=== PATIENT | female | born 1945 | race Two or more races ===

== ENCOUNTER 2023-06-02 15:31 | Inpatient (IN) | payer MEDICARE, OTHER ==
[~2023-06-02] VITALS: Ht 160 cm; Wt 50.4 kg
[2023-06-02] MEDS ORDERED: MORPHINE SULFATE 4 MG/ML SYR/VIAL IV ONE (19:00)
[2023-06-02 19:30] LABS: Basophils # (auto) 0.1 10 ^3/uL (0-0.2); Basophils % (auto) 1.1 % (0.0-2.0); Eosinophils # (auto) 0.1 10 ^3/uL (0-0.8); Hematocrit 36.8 % (36.0-46.0); Lymphocytes # (auto) 1.6 10 ^3/uL (0.4-5.4); Lymphocytes % (auto) 16.5 % (10.0-50.0); Mean Corpuscular Hemoglobin 28.2 pg (28.0-32.0); Mean Corpuscular Hgb Conc. 32.6 g/dL (32.0-36.0); Mean Corpuscular Volume 86.6 fL (80.0-100.0); Monocytes # (auto) 0.9 10 ^3/uL (0-1.3); Monocytes % (auto) 8.8 % (0.0-12.0); Neutrophils # (auto) 7.1 10 ^3/uL (1.6-8.6); Neutrophils % (auto) 72.6 % (37.0-80.0); Nucleated Red Blood Cells % 0.1 %; Red Blood Cells 4.25 10^6/uL (4.0-5.20); Red Cell Distribution Width 18.1 % (11.8-14.3); White Blood Cell 9.7 10^3/uL (4.4-10.8)
[2023-06-02 19:46] LABS: Alanine Aminotransferase 15 U/L (7-40); Albumin 3.5 g/dL (3.2-4.8); Alkaline Phosphatase 106 U/L (46-116); Anion Gap 8 (5-15); Aspartate Aminotransferase 16 U/L (13-40); BUN/Creatinine Ratio 19.2 (10.0-20.0); Bilirubin, Total 0.6 mg/dL (0.2-1.0); Blood Urea Nitrogen 20 mg/dL (9-23); Calcium 9.6 mg/dL (8.7-10.4); Carbon Dioxide 26 mmol/L (20-30); Chloride 108 mmol/L (98-107); Glucose 103 mg/dL (74-106); Lipase 45 U/L (12-53); Magnesium 2.2 mg/dL (1.6-2.6); Potassium 4.9 mmol/L (3.5-5.1); Sodium 142 mmol/L (136-145); Total Protein 5.9 g/dL (5.7-8.2)
[2023-06-02] MEDS: SODIUM CHLORIDE 0.9% 1,000 ML IV ONE (20:19)
[2023-06-02] MEDS: ONDANSETRON HCL 4 MG/2 ML VIAL IV ONE (20:24)
[2023-06-02] MEDS: LORazepam 2MG/ML-1ML VIAL IM ONE (20:31)
[2023-06-02 21:32] LABS: Urine Bacteria MOD /hpf (None Seen); Urine Blood Negative /uL (Negative); Urine Clarity HAZY (Clear); Urine Color Yellow (Yellow); Urine Mucus FEW (None Seen); Urine Protein, UAD TRACE (Negative); Urine Specific Gravity 1.024 (1.001-1.035); Urine Urobilinogen Normal (Negative); Urine WBC 96 /hpf (0 - 5); Urine pH 6.5 (5.0-8.0)
[2023-06-02] MEDS ORDERED: HYDROcodone-ACET 5/325MG TAB PO PRN (22:00)
[2023-06-02] MEDS ORDERED: DOCUSATE SOD 100 MG CAP PO PRN (22:00)
[2023-06-02] MEDS ORDERED: ACETAMINOPHEN 325 MG TAB PO PRN (22:00)
[2023-06-02] MEDS ORDERED: MORPHINE SULFATE INJ 2 MG/ml SYRG IV PRN (22:15)
[2023-06-02] MEDS ORDERED: NITROGLYCERIN 0.4 MG SL TAB SL PRN (22:15)
[2023-06-02] MEDS: PIPERACILLIN-TAZOB 3.375GM 100 ML IV ONE (22:31)
[2023-06-02] MEDS: D5W/SOD CHL 0.45% 1,000 ML IV SCH (23:48)
[2023-06-03] MEDS: MORPHINE SULFATE INJ 2 MG/ml SYRG IV PRN (01:30)
[2023-06-03] MEDS: ONDANSETRON HCL 4 MG/2 ML VIAL IV PRN (01:39)
[2023-06-03 01:43] VITALS: PULSE 73; RESP 16; O2SAT 99
[2023-06-03] MEDS: FAMOTIDINE (10MG/ML) 2ML VL IV SCH (03:22)
[2023-06-03 07:20] LABS: Basophils # (auto) 0 10 ^3/uL (0-0.2); Basophils % (auto) 0.3 % (0.0-2.0); Eosinophils # (auto) 0.1 10 ^3/uL (0-0.8); Eosinophils % (auto) 0.9 % (0.0-7.0); Hematocrit 36.6 % (36.0-46.0); Hemoglobin 11.7 g/dL (12.2-16.2); Lymphocytes # (auto) 1.2 10 ^3/uL (0.4-5.4); Lymphocytes % (auto) 12.3 % (10.0-50.0); Mean Corpuscular Hemoglobin 27.8 pg (28.0-32.0); Mean Corpuscular Hgb Conc. 32.1 g/dL (32.0-36.0); Mean Corpuscular Volume 86.8 fL (80.0-100.0); Monocytes # (auto) 0.9 10 ^3/uL (0-1.3); Neutrophils # (auto) 7.2 10 ^3/uL (1.6-8.6); Neutrophils % (auto) 76.5 % (37.0-80.0); Red Blood Cells 4.21 10^6/uL (4.0-5.20); Red Cell Distribution Width 17.8 % (11.8-14.3); White Blood Cell 9.4 10^3/uL (4.4-10.8)
[2023-06-03 07:56] LABS: Alanine Aminotransferase 18 U/L (7-40); Alkaline Phosphatase 144 U/L (46-116); Anion Gap 5 (5-15); BUN/Creatinine Ratio 14.4 (10.0-20.0); Blood Urea Nitrogen 14 mg/dL (9-23); Calcium 9.2 mg/dL (8.7-10.4); Carbon Dioxide 26 mmol/L (20-30); Chloride 109 mmol/L (98-107); Glucose 103 mg/dL (74-106); Potassium 4.6 mmol/L (3.5-5.1); Sodium 140 mmol/L (136-145)
[2023-06-03 07:57] LABS: Albumin 3.5 g/dL (3.2-4.8); Aspartate Aminotransferase 37 U/L (13-40); Bilirubin, Total 0.7 mg/dL (0.2-1.0); Total Protein 6.1 g/dL (5.7-8.2)
[2023-06-03 08:26] VITALS: PULSE 82; RESP 13; O2SAT 99
[2023-06-03 09:13] LABS: INR 1.07 (0.9-1.15); Partial Thromboplastin Time 27.9 SEC (24.5-34.5); Prothrombin Time 11.2 sec (9.3-11.8)
[2023-06-03] MEDS: PIPERACILLIN-TAZOB 3.375GM 100 ML IV SCH (10:20)
[2023-06-04 05:31] LABS: Basophils # (auto) 0 10 ^3/uL (0-0.2); Basophils % (auto) 0.5 % (0.0-2.0); Eosinophils # (auto) 0.2 10 ^3/uL (0-0.8); Eosinophils % (auto) 4.3 % (0.0-7.0); Lymphocytes # (auto) 1.3 10 ^3/uL (0.4-5.4); Lymphocytes % (auto) 24.1 % (10.0-50.0); Mean Corpuscular Hemoglobin 28.2 pg (28.0-32.0); Mean Corpuscular Hgb Conc. 32.4 g/dL (32.0-36.0); Mean Corpuscular Volume 86.9 fL (80.0-100.0); Monocytes # (auto) 0.5 10 ^3/uL (0-1.3); Monocytes % (auto) 9.8 % (0.0-12.0); Neutrophils # (auto) 3.4 10 ^3/uL (1.6-8.6); Neutrophils % (auto) 61.3 % (37.0-80.0); Nucleated Red Blood Cells % 0.1 %; Red Blood Cells 3.91 10^6/uL (4.0-5.20); Red Cell Distribution Width 17.5 % (11.8-14.3); White Blood Cell 5.5 10^3/uL (4.4-10.8)
[2023-06-04 05:48] LABS: Alanine Aminotransferase 12 U/L (7-40); Albumin 3.1 g/dL (3.2-4.8); Alkaline Phosphatase 112 U/L (46-116); Anion Gap 6 (5-15); Aspartate Aminotransferase 23 U/L (13-40); BUN/Creatinine Ratio 10.4 (10.0-20.0); Bilirubin, Total 0.5 mg/dL (0.2-1.0); Blood Urea Nitrogen 11 mg/dL (9-23); Calcium 9.2 mg/dL (8.5-10.1); Carbon Dioxide 26 mmol/L (20-30); Chloride 110 mmol/L (98-107); Glucose 89 mg/dL (74-106); Potassium 3.8 mmol/L (3.5-5.1); Sodium 142 mmol/L (136-145); Total Protein 5.3 g/dL (5.7-8.2)
[2023-06-04] MEDS: GASTROGRAFIN 120 ML SOL ONE (15:01)
[2023-06-04 19:25] VITALS: PULSE 56; RESP 15; O2SAT 100
[2023-06-04 21:03] VITALS: BP 119/70; PULSE 75; RESP 16; TEMP 98.3; O2SAT 98
[2023-06-04 22:00] VITALS: BP 113/62; PULSE 70; RESP 19; TEMP 97.6; O2SAT 98
[2023-06-05] VITALS (7 sets, daily range): BP systolic 102–130; BP diastolic 55–66; PULSE 61–73; RESP 17–20; TEMP 97.6–98.3; O2SAT 93–99
[2023-06-05] MEDS ORDERED: MET25T PO (01:19)
[2023-06-05] MEDS ORDERED: FAMO-12 PO (01:19)
[2023-06-05] MEDS ORDERED: SERT-206 PO (01:19)
[2023-06-05] MEDS: cefTRIAXone 1GM/50ML D5W 50 ML IV ONE (21:44)
[2023-06-06] VITALS (9 sets, daily range): BP systolic 102–136; BP diastolic 54–99; PULSE 60–79; RESP 17–20; TEMP 97.2–98.3; O2SAT 90–100
[2023-06-06] MEDS ORDERED: SODIUM CHLORIDE LOCK 10 ML ONE (08:50)
[2023-06-06] MEDS: cefTRIAXone 1GM/50ML D5W 50 ML IV SCH (09:48)
[2023-06-06] MEDS: LIDOCAINE VISCOUS 2% 15ML UD ONE (11:04)
[2023-06-06] MEDS: MIDAZOLAM HCL 5 MG/ML-1ML VIAL ONE (11:09)
[2023-06-06] MEDS: diphenhdrAMINE HCL 50 MG/1 ML VL ONE (11:09)
[2023-06-06] MEDS: fentaNYL CITRATE 100 MCG/2 ML VL ONE (11:09)
[2023-06-06] MEDS: SUCRALFATE 1 GM/10 ML ORAL SUSP PO SCH (12:50)
[2023-06-06] MEDS: CIPROFLOXACIN HCL 500 MG TAB PO SCH (22:07)
[2023-06-06] MEDS: PANTOPRAZOLE 40 MG TAB PO SCH (22:07)
[2023-06-07 07:08] LABS: Basophils # (auto) 0 10 ^3/uL (0-0.2); Basophils % (auto) 0.5 % (0.0-2.0); Eosinophils # (auto) 0.3 10 ^3/uL (0-0.8); Hemoglobin 11.4 g/dL (12.2-16.2); Monocytes # (auto) 0.5 10 ^3/uL (0-1.3)
[2023-06-07 07:10] LABS: Alanine Aminotransferase 14 U/L (7-40); Albumin 3.4 g/dL (3.2-4.8); Alkaline Phosphatase 100 U/L (46-116); Anion Gap 6 (5-15); Aspartate Aminotransferase 21 U/L (13-40); Bilirubin, Total 0.2 mg/dL (0.2-1.0); Calcium 9.1 mg/dL (8.5-10.1); Carbon Dioxide 26 mmol/L (20-30); Chloride 111 mmol/L (98-107); Eosinophils % (auto) 5.4 % (0.0-7.0); Glucose 81 mg/dL (74-106); Hematocrit 36.8 % (36.0-46.0); Lymphocytes % (auto) 17.3 % (10.0-50.0); Mean Corpuscular Hemoglobin 27.9 pg (28.0-32.0); Mean Corpuscular Hgb Conc. 30.9 g/dL (32.0-36.0); Mean Corpuscular Volume 90.1 fL (80.0-100.0); Monocytes % (auto) 9.2 % (0.0-12.0); Neutrophils # (auto) 3.8 10 ^3/uL (1.6-8.6); Neutrophils % (auto) 67.6 % (37.0-80.0); Nucleated Red Blood Cells % 0.1 %; Red Blood Cells 4.09 10^6/uL (4.0-5.20); Red Cell Distribution Width 18.3 % (11.8-14.3); Sodium 143 mmol/L (136-145); White Blood Cell 5.6 10^3/uL (4.4-10.8)
[2023-06-07 07:11] LABS: Total Protein 5.6 g/dL (5.7-8.2)
[2023-06-07 07:14] LABS: BUN/Creatinine Ratio 6.5 (10.0-20.0); Blood Urea Nitrogen < 5 mg/dL (9-23)
[2023-06-07 08:00] VITALS: BP 102/63; PULSE 70; RESP 18; TEMP 98.2
[2023-06-07 08:30] VITALS: BP 125/67; PULSE 59; RESP 17; TEMP 97.9; O2SAT 99
[2023-06-07 13:29] VITALS: BP 130/66; PULSE 70; RESP 19; TEMP 97.6; O2SAT 99
[2023-06-07 17:02] VITALS: BP 126/70; PULSE 69; RESP 17; TEMP 97.6; O2SAT 98
[2023-06-07 20:00] VITALS: BP 98/66; PULSE 87; RESP 18; TEMP 98.2; O2SAT 95
[2023-06-07 21:30] VITALS: BP 98/66; PULSE 87; RESP 18; TEMP 98.2; O2SAT 95
[2023-06-08 05:00] VITALS: BP 124/58; PULSE 67; RESP 18; TEMP 97.7; O2SAT 97
[2023-06-08 08:00] VITALS: PULSE 85; RESP 16; O2SAT 95
[2023-06-08 09:00] VITALS: BP 145/73; PULSE 72; RESP 19; TEMP 97.5; O2SAT 100
[2023-06-08] MEDS ORDERED: SUCR1TAB22 OR (10:00)
[2023-06-08] MEDS ORDERED: PANT40T PO (10:00)
[2023-06-08] MEDS ORDERED: CIP500T PO (10:00)
[2023-06-08 12:12] VITALS: TEMP 36.5
== END 2023-06-08 13:40 | disposition home or self-care (01) | DRG 384 ==
LOC: EDBD 15:31 → ER 15:31 → OVERFLOW 06-03 10:57 → CENTRAL 06-04 19:40 → TELE-CENTR 06-04 23:50 → CENTRAL 06-07 18:22
PROVIDERS: ADMIT Nurse Practitioner Family; ATTEND Nurse Practitioner Acute Care
PROC: 0DB68ZX Excision of Stomach, Via Natural or Artificial Opening Endoscopic, Diagnostic (ICD-10-PCS; 2023-06-06)
PROC: 0DBA8ZX Excision of Jejunum, Via Natural or Artificial Opening Endoscopic, Diagnostic (ICD-10-PCS; 2023-06-06)
PROC: 0DB98ZX Excision of Duodenum, Via Natural or Artificial Opening Endoscopic, Diagnostic (ICD-10-PCS; principal; 2023-06-06 11:01)
DX: K25.9 Gastric ulcer, unspecified as acute or chronic, without hemorrhage or perforation (principal); N30.00 Acute cystitis without hematuria; F03.90 Unspecified dementia, unspecified severity, without behavioral disturbance, psychotic disturbance, mood disturbance, and anxiety; D64.9 Anemia, unspecified; B96.1 Klebsiella pneumoniae [K. pneumoniae] as the cause of diseases classified elsewhere; Z87.442 Personal history of urinary calculi; K80.70 Calculus of gallbladder and bile duct without cholecystitis without obstruction; Z98.84 Bariatric surgery status; Z90.49 Acquired absence of other specified parts of digestive tract; Z80.1 Family history of malignant neoplasm of trachea, bronchus and lung; Z80.0 Family history of malignant neoplasm of digestive organs; Z87.11 Personal history of peptic ulcer disease
CPT/HCPCS: 36415; 43239; 70450; 74177; 74250; 76705; 78226; 80053; 81001; 83690; 83735; 84484; 85025; 85610; 85730; 87086; 87088; 87186; 93005; 96365; 96375; G0378; J2250; J2405; J2543; J3490